=== PATIENT | female | born 1990 | race Caucasian/White ===

== ENCOUNTER 2020-06-27 02:58 | Outpatient (CLI) | payer BC, SELFPAY ==
[2020-06-28 22:30] LABS: SARS-CoV-2 RNA PCR Negative
== END 2020-06-27 02:59 | disposition home or self-care (01) ==
LOC: ANHCOVIDDT 02:58
PROVIDERS: PCP Nurse Practitioner Family; Visit Provider Internal Medicine Gastroenterology
DX: Z01.812 Encounter for preprocedural laboratory examination (principal); Z11.59 Encounter for screening for other viral diseases
CPT/HCPCS: 87635; C9803; U0003

== ENCOUNTER 2020-06-29 01:48 | Day surgery (SDC) | payer BC, SELFPAY ==
[2020-06-20 14:50] VITALS: BMI 30.7
[2020-06-29 09:29] VITALS: BP 93/64; PULSE 97; RESP 18; TEMP 36.8; O2SAT 99
[2020-06-29] MEDS: LACTATED RINGERS 1,000 ML 150 ML IV CONT (09:50)
--- NOTE | 2020-06-29 10:04 | WPDANESEPPF ---
Anes - Initial Pre Proc Eval Procedure: Operation Date: 06/29/20 10:30 Proposed Procedures p Esophagogastroduodenoscopy - Cj Anne MD Date/Time: 06/29/20 10:04 Surgeon: Cj Anne MD Pre Op Diagnosis: ABD PAIN, NAUSEA Patient Data Age: 30 Gender: F Height: 5 ft 2 in Weight: 74.8 kg Last Vital Signs Temp 98.3 F 06/29/20 09:29 Pulse 97 06/29/20 09:29 Resp 18 06/29/20 09:29 BP 93/64 L 06/29/20 09:29 Pulse Ox 99 06/29/20 09:29 Allergies Allergy/AdvReac Type Severity Reaction Status Date / Time morphine Allergy Hives Verified 06/29/20 09:20 Penicillins Allergy Hives Verified 06/29/20 09:20 Home Medications Medication Instructions Recorded Confirmed Type alprazolam 0.25 mg tablet 0.25 mg PO DAILY 06/08/20 06/20/20 History cetirizine 10 mg capsule 10 mg PO DAILY #30 cap 06/08/20 06/20/20 Rx omeprazole magnesium 20 mg 20 mg PO DAILY 06/08/20 06/20/20 History tablet,delayed release ondansetron HCl 8 mg tablet 8 mg PO Q8-10H 06/08/20 06/20/20 History promethazine 25 mg tablet 25 mg PO BID PRN 06/08/20 06/20/20 History docusate sodium [Colace] 100 mg PO DAILY 06/20/20 06/20/20 History famotidine [Pepcid] 20 mg PO BID 06/20/20 06/20/20 History fluticasone propionate [Flonase 1 spray INTRANASAL BID 06/20/20 06/20/20 History Allergy Relief] hydrocodone-acetaminophen 1 tablet PO Q4H PRN 06/20/20 06/20/20 History hyoscyamine sulfate 0.125 mg tablet 0.125 mg PO Q12H PRN #60 tablet 06/20/20 06/29/20 Rx peppermint oil [IBgard] 90 mg PO DAILY 06/20/20 06/20/20 History Patient hx anesthesia problems: none Family hx anesthesia problems: none PMFSH Past Medical History Medical History (Updated 06/08/20 @ 14:13 by Kirsten Robles) Anxiety Bloating Chronic diarrhea Headache Irritable bowel syndrome with diarrhea Migraine Psychiatric disorder Family History Family History (Updated 06/08/20 @ 14:14 by Kirsten Robles) Mother Hypertension IBS (irritable bowel syndrome) Grandparent A-fib Acute Crohn's disease Social History Social History (Updated 06/08/20 @ 14:12 by Kirsten Robles) Years smoked: 10 Smoking status: Current some day smoker Tobacco type: cigarettes Alcohol intake: never Substance use: never Gender identity (if verbalized by the patient): Female Anes - Eval Final PreProcedure Day of Procedure 06/29/20 10:04 Patient weight: normal Heart: regular rate and rhythm Lungs: clear to auscultation Airway: Mallampati scale class II Neurological: alert and oriented Last oral intake: >/= 8 hours ASA classification: II Emergent: no Anesthetic plan: proceed Anesthesia type and monitoring: general GIVS and standard monitoring Informed Consent: The patient's anesthetic plan and its attendant risks and benefits were discussed with the patient/family/POA. Questions were solicited and answers provided to the satisfaction of the patient/family/POA.
--- NOTE | 2020-06-29 10:43 | WPDHPUPDATE1 ---
History and Physical Update Update Date/Time: 06/29/20 10:43 History and Physical has been reviewed, including an updated exam of the patient. There are NO changes in the patient's condition. Risks, benefits, and alternatives have been discussed and questions answered. Patient agrees to proceed with procedure.
[2020-06-29 10:48] VITALS: BP 110/66; PULSE 98; RESP 20; O2SAT 97
[2020-06-29 10:58] VITALS: BP 112/75; PULSE 83; RESP 22; O2SAT 99
[2020-06-29 11:08] VITALS: BP 118/80; PULSE 79; RESP 18; O2SAT 100
== END 2020-06-29 11:18 | disposition home or self-care (01) ==
PROVIDERS: PCP Family Medicine; Visit Provider Internal Medicine Gastroenterology
PROC: 0DJ08ZZ Inspection of Upper Intestinal Tract, Via Natural or Artificial Opening Endoscopic (ICD-10-PCS; CPT 43235; principal; 2020-06-29 10:30)
DX: K44.9 Diaphragmatic hernia without obstruction or gangrene (principal); K29.50 Unspecified chronic gastritis without bleeding; K20.8 Other esophagitis; K58.0 Irritable bowel syndrome with diarrhea; F41.9 Anxiety disorder, unspecified; F17.210 Nicotine dependence, cigarettes, uncomplicated
CPT/HCPCS: 43239; 88305; J2704; J7120

== ENCOUNTER 2023-07-14 10:28 | Emergency (ER) | payer OTHER, SELFPAY ==
[2023-07-14 10:36] VITALS: BP 118/66; PULSE 92; RESP 20; TEMP 36.4; O2SAT 99
--- NOTE | 2023-07-14 11:38 | ED.GENADULT ---
HPI - General Adult General Chief complaint: Urogenital-Female Stated complaint: uti Source: patient Mode of arrival: ambulatory Limitations: no limitations History of Present Illness HPI narrative: Patient presents for evaluation of urinary symptoms for last few days. She reports urinary urgency and frequency with some pressure in her bladder. Denies any hematuria or overt dysuria. She has some mild low back pain. She denies any fever, chills, nausea, vomiting. She is currently , 28 weeks gestation, with confirmed IUP per ultrasound during this . She saw her OBGYN, Dr. Brewster, two days ago and mentioned her symptoms. She had labs performed. She states she was able the visualize the results on that appt for [facility] and had evidence of a urinary tract infection. There is no urine culture resulted as of yet. She has some clear vaginal discharge. Denies vaginal bleeding. She tried getting in touch with the exchange for Dr. Brewster but was unable to get through to a provider. Related Data Home Medications Medication Instructions Recorded Confirmed alprazolam 0.25 mg tablet (Xanax) 0.25 mg PO DAILY 06/08/20 06/20/20 ondansetron HCl 8 mg tablet 8 mg PO Q8-10H 06/08/20 06/20/20 (Zofran) promethazine 25 mg tablet 25 mg PO BID PRN Nausea And 06/08/20 06/20/20 Vomiting famotidine 20 mg tablet (Pepcid) 20 mg PO BID 06/20/20 06/20/20 fluticasone propionate 50 1 spray intranasal BID 06/20/20 06/20/20 mcg/actuation nasal spray,suspension (Flonase Allergy Relief) hydrocodone 5 mg-acetaminophen 325 1 tablet PO Q4H PRN Pain 06/20/20 06/20/20 mg tablet peppermint oil 90 mg 90 mg PO DAILY 06/20/20 06/20/20 capsule,delayed,extended release (IBgard) Allergies Allergy/AdvReac Type Severity Reaction Status Date / Time morphine Allergy Hives Verified 07/28/20 08:01 Penicillins Allergy Hives Verified 07/28/20 08:01 Review of Systems Review of Systems: CONSTITUTIONAL: Denies fever, chills, or sweats. EYES: Denies visual changes, redness, or discharge. ENT: Denies rhinorrhea, congestion, sore throat, or otalgia. CARDIOVASCULAR: Denies chest pain, palpitations, or edema. RESPIRATORY: Denies cough or dyspnea. GASTROINTESTINAL: Denies abdominal pain, nausea, vomiting, or diarrhea. GENITOURINARY: Reports urinary hesitancy and frequency. Denies hematuria, dysuria, vaginal bleeding. SKIN: Denies rash or itching. MUSCULOSKELETAL: Reports mild low back pain. Denies joint pain, or myalgia. NEUROLOGIC: Denies headache, numbness, dizziness, or weakness. PSYCHIATRIC: Denies anxiety or depression. [facility] Past Medical History Medical History Anxiety Bloating Chronic diarrhea Headache Irritable bowel syndrome with diarrhea Migraine Nausea Psychiatric disorder Surgical History Surgical History No pertinent past surgical history Family History Family History Mother Hypertension IBS (irritable bowel syndrome) Grandparent A-fib Acute Crohn's disease Social History Social History (Updated 06/08/20 @ 14:12 by Kirsten Resendez [facility]) Years smoked: 10 Smoking status: Current some day smoker Tobacco type: cigarettes Alcohol intake: never Substance use: never Occupation/Education: occupation Gender identity (if verbalized by the patient): Female Exam Narrative: GENERAL: Well-appearing, well-nourished, and in no acute distress. HEAD: Normocephalic, atraumatic. EYES: PERRLA and EOMI. ENT: Nares clear, no rhinorrhea or epistaxis. Mucous membranes moist. Oropharynx without tonsillar hypertrophy exudate or other lesions. Bilateral TMs pearly cash nonbulging NECK: Supple. No adenopathy or masses. No carotid bruits or JVD CHEST: Clear to auscultation. No respiratory distress. No wheezes rales
== END 2023-07-14 11:42 | disposition home or self-care (01) ==
PROVIDERS: Emergency Provider Nurse Practitioner; PCP Family Medicine
DX: O23.13 Infections of bladder in pregnancy, third trimester (principal); N30.00 Acute cystitis without hematuria; Z3A.28 28 weeks gestation of pregnancy; O99.333 Smoking (tobacco) complicating pregnancy, third trimester; F17.210 Nicotine dependence, cigarettes, uncomplicated; O99.340 Other mental disorders complicating pregnancy, unspecified trimester; F41.9 Anxiety disorder, unspecified
CPT/HCPCS: 81003; 87086; 99213; G0463